=== PATIENT | female | born 1985 | race Caucasian/White ===

== ENCOUNTER 2016-10-07 08:48 | Emergency (ER) | payer OTHER ==
[~2016-10-07] VITALS: Ht 147.3 cm; Wt 72.1 kg
[~2016-10-07 08:48] MED LIST: KLONAPIN; LOW ESTROGEN; prozac
[2016-10-07 08:49] VITALS: BP 131/75
--- NOTE | 2016-10-07 09:40 | REP ---
Chest two views HISTORY: Cough Comparison: None The lungs are clear. The heart is normal in size. The pulmonary vasculature is normal in appearance. The bony structure is intact. IMPRESSION: No acute disease. Signed by Alfa Thomas MD 10/07/2016 09:32 A
[2016-10-07] MEDS ORDERED: FLON1SPR (09:47)
[2016-10-07] MEDS ORDERED: GUAISYP9 PO (09:47)
[2016-10-07] MEDS ORDERED: TESS100C PO (09:47)
== END 2016-10-07 09:54 | disposition home or self-care (01) ==
LOC: MERGE 09:05 → M ED 09:05
DX: J06.9 Acute upper respiratory infection, unspecified (principal); F41.9 Anxiety disorder, unspecified; F33.9 Major depressive disorder, recurrent, unspecified; Z79.899 Other long term (current) drug therapy; Z88.2 Allergy status to sulfonamides; F17.210 Nicotine dependence, cigarettes, uncomplicated

== ENCOUNTER 2016-10-28 08:36 | Emergency (ER) | payer OTHER ==
[~2016-10-28] VITALS: Ht 147.3 cm; Wt 69.9 kg
[~2016-10-28 08:36] MED LIST changes: +FLON1SPR; +GUAISYP9 PO; +TESS100C PO
[2016-10-28 10:04] LABS: CONTROL LINE UCG INT CTR LINE PRESENT
[2016-10-28 11:13] LABS: BASO % 0.4 % (0.0-1.0); EOS # 0.1 K/mm3 (0.0-0.50); EOS % 0.8 % (0.0-3.0); LARGE UNSTAINED CELL # 0.1 K/mm3 (0.0-0.4); LARGE UNSTAINED CELL % 1.2 % (0.0-4.0); LYMPH # 1.7 K/mm3 (1.5-4.5); LYMPH % 23.3 % (24.0-44.0); MEAN CORPUSCULAR HEMOGLOBIN 32.3 pg (27.0-33.0); MEAN CORPUSCULAR HGB CONC 34.5 g/dl (32.0-36.5); MEAN CORPUSCULAR VOLUME 93.6 fl (80.0-96.0); MONO # 0.3 K/mm3 (0.0-0.8); MONO % 4.1 % (0.0-5.0); NEUTROPHILS # 5.2 K/mm3 (1.8-7.7); NEUTROPHILS % 70.1 % (36.0-66.0); PLATELET COUNT, AUTOMATED 256 k/mm3 (150-450); RED CELL DISTRIBUTION WIDTH 12.6 % (11.5-14.5); WHITE BLOOD COUNT 7.4 K/mm3 (4.0-10.0)
[2016-10-28] MEDS ORDERED: ACETAMINOPHEN 325 MG TAB PO ONE (11:15)
[2016-10-28] MEDS ORDERED: METOCLOPRAMIDE 10 MG TAB PO ONE (11:15)
[2016-10-28] MEDS ORDERED: METOCLOPRAMIDE 5 MG TAB PO ONE (11:15)
[2016-10-28 11:39] LABS: ANION GAP 6 MEQ/L (8-16); BLOOD UREA NITROGEN 9 MG/DL (7-18); CALCIUM LEVEL 8.7 MG/DL (8.5-10.1); CARBON DIOXIDE LEVEL 25 MEQ/L (21-32); CHLORIDE LEVEL 108 MEQ/L (98-107); CREATININE FOR GFR 0.62 MG/DL (0.55-1.02); GLOMERULAR FILTRATION RATE > 60.0 (>60); GLUCOSE, FASTING 93 MG/DL (70-105); HCG, SERUM QUANTITATIVE 437 MIU/ML; POTASSIUM SERUM 3.9 MEQ/L (3.5-5.1); SODIUM LEVEL 139 MEQ/L (136-145)
--- NOTE | 2016-10-28 11:52 | REP ---
Clinical: Pelvic pain with positive test. Technique: Transabdominal pelvic ultrasound followed by transvaginal examination for better evaluation of the endometrium and adnexa with color Doppler evaluation. Findings: Anteverted uterus measures 8.2 x 4.2 x 5.2 cm. Endometrial complex measures 13.1 mm thickness. No intrauterine identified. The bilateral ovaries are normal in appearance and vascularity without torsion. Right ovary measures 3.1 x 1.9 x 2.6 cm; RI equal 0.63. Left ovary measures 3.9 x 2.9 x 3.7 cm with 2.7 cm hemorrhagic cyst/corpus luteum; RI equal 0.57. Small amount of free fluid noted in the pelvis. No adnexal mass lesion identified. Impression: Anteverted uterus with left hemorrhagic cyst/corpus luteum cyst. No intrauterine identified. Correlation with serial HCG levels recommended. Differential diagnosis includes early , recent spontaneous , and ectopic cannot definitively be excluded. Signed by Graeme Alfred MD 10/28/2016 11:43 A
[2016-10-28] MEDS ORDERED: NITROFURANTOIN (MACROBID) 100 MG CAP PO ONE (12:00)
[2016-10-28 12:14] VITALS: BP 127/67
[2016-10-28] MEDS ORDERED: REGL10TA6 PO (12:14)
[2016-10-28] MEDS ORDERED: MACR100C3 PO (12:14)
== END 2016-10-28 12:22 | disposition home or self-care (01) ==
LOC: M ED 10:24
DX: O23.10 Infections of bladder in pregnancy, unspecified trimester (principal); Z3A.01 Less than 8 weeks gestation of pregnancy; O99.341 Other mental disorders complicating pregnancy, first trimester; F41.9 Anxiety disorder, unspecified; Z79.899 Other long term (current) drug therapy; Z88.2 Allergy status to sulfonamides; O99.711 Diseases of the skin and subcutaneous tissue complicating pregnancy, first trimester; L23.1 Allergic contact dermatitis due to adhesives; O99.331 Smoking (tobacco) complicating pregnancy, first trimester; F17.210 Nicotine dependence, cigarettes, uncomplicated

== ENCOUNTER 2016-11-26 08:18 | Emergency (ER) | payer OTHER ==
[~2016-11-26] VITALS: Ht 147.3 cm; Wt 69.1 kg
[~2016-11-26 08:18] MED LIST changes: +MACR100C3 PO; +REGL10TA6 PO
[2016-11-26] MEDS ORDERED: PRENTAB40 PO (08:26)
[2016-11-26] MEDS ORDERED: TYLE325T5 PO (08:26)
--- NOTE | 2016-11-26 10:29 | REP ---
First trimester obstetric ultrasound, stat request from the ER for left lower quadrant pain. There is an intrauterine gestational sac with a pole. There is cardiac activity, the heart rate is 171 beats per minute. The crown-rump length of the pole is 2.0 cm. This corresponds to 8 weeks 4 days gestational age. The MARYELLEN of 07/04/2017. No subchorionic hematoma is identified. There is a left ovarian cyst, likely a corpus luteum, measuring 1.8 cm. The right ovary is unremarkable. No free fluid in the pelvis. With Doppler assessment there is vascular flow in both ovaries with the Doppler resistive index of the right ovary measuring zero point 0.69 and of the left ovary measuring 0.44. Signed by Nickolas Richard MD 11/26/2016 10:21 A
[2016-11-26 10:34] VITALS: BP 123/71
== END 2016-11-26 10:36 | disposition home or self-care (01) ==
LOC: M ED 08:41
DX: N83.291 Other ovarian cyst, right side (principal); O99.341 Other mental disorders complicating pregnancy, first trimester; F41.9 Anxiety disorder, unspecified; O99.331 Smoking (tobacco) complicating pregnancy, first trimester; Z79.899 Other long term (current) drug therapy; Z88.2 Allergy status to sulfonamides; Z91.09 Other allergy status, other than to drugs and biological substances; Z3A.08 8 weeks gestation of pregnancy

== ENCOUNTER → 2016-12-09 | Outpatient (CLI) | payer OTHER ==
[~2016-12-09] MED LIST changes: +PRENTAB40 PO; +TYLE325T5 PO
[2016-12-09 14:55] LABS: BASO % 0.2 % (0.0-1.0); EOS % 0.5 % (0.0-3.0); LARGE UNSTAINED CELL # 0.1 K/mm3 (0.0-0.4); LARGE UNSTAINED CELL % 1.1 % (0.0-4.0); LYMPH # 1.9 K/mm3 (1.5-4.5); LYMPH % 24.7 % (24.0-44.0); MEAN CORPUSCULAR HEMOGLOBIN 31.5 pg (27.0-33.0); MEAN CORPUSCULAR HGB CONC 34.6 g/dl (32.0-36.5); MONO # 0.3 K/mm3 (0.0-0.8); MONO % 4.4 % (0.0-5.0); NEUTROPHILS % 69.1 % (36.0-66.0); PLATELET COUNT, AUTOMATED 216 k/mm3 (150-450); RED CELL DISTRIBUTION WIDTH 12.6 % (11.5-14.5); WHITE BLOOD COUNT 7.3 K/mm3 (4.0-10.0)
[2016-12-11 10:46] LABS: HBsAg Prenatal NEGATIVE (NEGATIVE)
== END ==
LOC: M SMT 10:27
PROVIDERS: ATTEND Advanced Practice Midwife
DX: Z34.81 Encounter for supervision of other normal pregnancy, first trimester (principal)

== ENCOUNTER 2016-12-26 10:51 | Emergency (ER) | payer OTHER ==
[~2016-12-26] VITALS: Ht 147.3 cm; Wt 73.1 kg
[~2016-12-26 10:51] MED LIST changes: -MACR100C3 PO; +MACR100C43 PO
[2016-12-26 10:52] VITALS: BP 142/71
[2016-12-26] MEDS ORDERED: REGL10TA6 (11:01)
[2016-12-26] MEDS ORDERED: ALBU17IN INH (12:40)
[2016-12-26] MEDS ORDERED: AUGM875T28 PO (12:40)
[2016-12-26] MEDS ORDERED: CLAR1TAB2 PO (12:40)
== END 2016-12-26 12:49 | disposition home or self-care (01) ==
LOC: M ED 10:51
DX: J01.90 Acute sinusitis, unspecified (principal); J20.9 Acute bronchitis, unspecified; F17.210 Nicotine dependence, cigarettes, uncomplicated

== ENCOUNTER → 2017-01-08 | Outpatient (REF) | payer OTHER ==
[~2017-01-08] MED LIST changes: +ALBU17IN INH; +AUGM875T28 PO; +CLAR1TAB2 PO; +REGL10TA6
== END ==
LOC: M LAB REF 13:16
PROVIDERS: ATTEND Advanced Practice Midwife
DX: Z34.81 Encounter for supervision of other normal pregnancy, first trimester (principal)

== ENCOUNTER → 2017-02-04 | Outpatient (CLI) | payer OTHER ==
--- NOTE | 2017-02-04 11:14 | REP ---
OB ULTRASOUND: Real-time sonographic evaluation of the gravid uterus is performed. There is a single living intrauterine with an estimated gestational age 18 weeks 3 days, EDC 07/05/2017. Today's measurements indicate appropriate growth. Biometry and Growth: BPD 38 mm = 17 weeks 5 days, 24th percentile HC 150 mm = 18 weeks 4 days, 40th percentile AC 134 mm = 18 weeks 6 days, 61st percentile FL 28 mm = 18 weeks 4 days, 53rd percentile HC/AC ratio 1.12 within normal range. Estimated weight 250 grams, 55th percentile. SEEN/GROSSLY UNREMARKABLE Lateral ventricles Yes Posterior fossa Yes Upper lip Yes Four-chamber heart No LVOT No RVOT No Stomach Yes Cord insertion Yes Three vessel cord Yes Kidneys Yes Bladder Yes Spine No Cervical length: Closed and measures 3.2 cm in length. heart rate: 145 beats per minute. position: Vertex. Placenta: Anterior and grade 0 with no previa or abruption. Amniotic fluid: Within normal limits. Signed by Nickolas Dawn MD 02/04/2017 04:40 P
== END ==
LOC: M RAD 09:24
PROVIDERS: ATTEND Advanced Practice Midwife
DX: Z34.80 Encounter for supervision of other normal pregnancy, unspecified trimester (principal)

== ENCOUNTER → 2017-02-18 | Outpatient (CLI) | payer OTHER ==
--- NOTE | 2017-02-18 18:35 | REP ---
Clinical: Anatomical re-evaluation. Comparison: 02/04/2017 . Findings: Examination demonstrates a single live intrauterine in cephalic presentation. motion is identified by technologist. Placenta is noted anteriorly and grade 0 without evidence for placenta previa or abruption. Amniotic fluid volume is normal. Cervix measures 3.3 cm in length and appears closed. Gestational age by LMP 20 weeks 3-day with MARYELLEN 07/05/2017 . Gestational age by current measurements 20 weeks 5 days with MARYELLEN 07/03/2017 . FHR equals 135 beats per minute. Estimated weight 380 grams ( 61st percentile). Anatomical assessment demonstrates normal structures including cranium, choroid plexus, cavum, cerebellum/posterior fossa, facial features, lungs, four-chamber heart/ventricular outflow tracts, diaphragm, stomach, cord insertion/three-vessel cord, kidneys/bladder, spine, and extremities. Impression: Single live intrauterine in cephalic presentation demonstrating appropriate interval growth. Anatomical assessment is complete and normal. Signed by Graeme Alfred MD 02/18/2017 06:26 P
== END ==
LOC: M RAD 16:36
PROVIDERS: ATTEND Advanced Practice Midwife
DX: Z36 Encounter for antenatal screening of mother (principal); Z3A.20 20 weeks gestation of pregnancy

== ENCOUNTER → 2017-04-03 | Outpatient (CLI) | payer OTHER ==
[2017-04-03 14:01] LABS: BASO % 0.3 % (0.0-1.0); EOS % 0.4 % (0.0-3.0); IMMATURE GRANULOCYTE % 0.8 % (0-0); LYMPH # 1.6 10^3/uL (1.5-4.5); LYMPH % 17.7 % (24.0-44.0); MEAN CORPUSCULAR HEMOGLOBIN 30.4 pg (27.0-33.0); MEAN CORPUSCULAR HGB CONC 33.8 g/dl (32.0-36.5); MEAN CORPUSCULAR VOLUME 89.7 fl (80.0-96.0); MONO # 0.7 10^3/uL (0.0-0.8); MONO % 7.6 % (0.0-5.0); NEUTROPHILS # 6.8 10^3/uL (1.8-7.7); NEUTROPHILS % 73.2 % (36.0-66.0); PLATELET COUNT, AUTOMATED 235 10^3/uL (150-450); RED CELL DISTRIBUTION WIDTH 12.9 % (11.5-14.5); WHITE BLOOD COUNT 9.3 10^3/uL (4.0-10.0)
== END ==
LOC: M SMT 08:38
PROVIDERS: ATTEND Advanced Practice Midwife
DX: Z34.83 Encounter for supervision of other normal pregnancy, third trimester (principal)

== ENCOUNTER 2017-05-19 15:44 | Outpatient (CLI) | payer OTHER ==
[~2017-05-19] VITALS: Ht 147.3 cm; Wt 75.7 kg
[2017-05-19 16:10] VITALS: BP 125/69
[2017-05-19 17:18] VITALS: BP 120/69
[2017-05-19 17:35] LABS: MEAN CORPUSCULAR HEMOGLOBIN 30.9 pg (27.0-33.0); MEAN CORPUSCULAR HGB CONC 34.7 g/dl (32.0-36.5); PLATELET COUNT, AUTOMATED 233 10^3/uL (150-450); RED CELL DISTRIBUTION WIDTH 12.8 % (11.5-14.5); WHITE BLOOD COUNT 10.8 10^3/uL (4.0-10.0)
[2017-05-19 18:04] LABS: ALBUMIN/GLOBULIN RATIO 0.73 (1.00-1.93); ALKALINE PHOSPHATASE 92 U/L (45-117); ALT/SGPT 14 U/L (12-78); ANION GAP 8 MEQ/L (8-16); AST/SGOT 19 U/L (7-37); BILIRUBIN,TOTAL 0.3 MG/DL (0.2-1.0); BLOOD UREA NITROGEN 4 MG/DL (7-18); CALCIUM LEVEL 8.7 MG/DL (8.5-10.1); CARBON DIOXIDE LEVEL 24 MEQ/L (21-32); CHLORIDE LEVEL 104 MEQ/L (98-107); CREATININE FOR GFR 0.45 MG/DL (0.55-1.02); GLOMERULAR FILTRATION RATE > 60.0 (>60); GLUCOSE, FASTING 79 MG/DL (70-105); POTASSIUM SERUM 3.4 MEQ/L (3.5-5.1); SODIUM LEVEL 136 MEQ/L (136-145); TOTAL PROTEIN 7.1 GM/DL (6.4-8.2)
[2017-05-19 18:46] VITALS: BP 123/58
--- NOTE | 2017-05-19 18:50 | REP ---
REASON FOR EXAM: Right flank pain. PRIORS: None. Right kidney measures 12.8 x 4.1 x 5.1 cm. The renal cortical echoes are within normal limits. There is mild right sided hydronephrosis. There are no malina cystic or solid masses. Left kidney measures 12.2 x 5.1 x 4.9 cm. The renal cortical echoes are within normal limits. There are no cystic or solid masses. There is no hydronephrosis. IMPRESSION: Mild right sided hydronephrosis. Signed by Constantine Gayle DO 05/19/2017 08:00 P
== END 2017-05-19 19:45 | disposition home or self-care (01) ==
LOC: M LDO 15:44
PROVIDERS: ATTEND Advanced Practice Midwife
DX: O99.89 Other specified diseases and conditions complicating pregnancy, childbirth and the puerperium (principal); R10.30 Lower abdominal pain, unspecified; O47.03 False labor before 37 completed weeks of gestation, third trimester; Z3A.33 33 weeks gestation of pregnancy

== ENCOUNTER → 2017-06-11 | Outpatient (REF) | payer OTHER | LOC: M LAB REF 11:04 | PROVIDERS: ATTEND Advanced Practice Midwife | DX: Z34.83 Encounter for supervision of other normal pregnancy, third trimester (principal) ==

== ENCOUNTER 2017-07-11 03:26 | Inpatient (IN) | payer OTHER ==
[2017-07-11] MEDS: LR 1,000 ML IV ×3 (04:00→19:28)
[2017-07-11 04:13] LABS: HEMATOCRIT 37.6 % (36.0-47.0); HEMOGLOBIN 13.1 g/dl (12.0-16.0); MEAN CORPUSCULAR HGB CONC 34.8 g/dl (32.0-36.5); MEAN CORPUSCULAR VOLUME 88.9 fl (80.0-96.0); PLATELET COUNT, AUTOMATED 241 10^3/uL (150-450); RED BLOOD COUNT 4.23 10^6/uL (4.00-5.40); RED CELL DISTRIBUTION WIDTH 13.5 % (11.5-14.5); WHITE BLOOD COUNT 11.2 10^3/uL (4.0-10.0)
[2017-07-11] MEDS ORDERED: OXYTOCIN 30 UNITS IN 0.9% NaCl 500ML IV BAG (J2590) As Ordered (04:27)
[2017-07-11] MEDS ORDERED: LR 1,000 ML IV (04:35)
[2017-07-11] MEDS: OXYTOCIN DRIP 30 UNITS in APPROPRIATE DILUENT 1 EA IV (05:03)
[2017-07-11] MEDS ORDERED: ONDANSETRON 4MG/2ML VIAL (J2405) IV (05:30)
[2017-07-11] MEDS ORDERED: DOCUSATE SODIUM 100 MG CAP PO (05:30)
[2017-07-11] MEDS ORDERED: METHYLERGONOVINE MALEATE 0.2 MG TAB PO (05:30)
[2017-07-11] MEDS ORDERED: DIBUCAINE 1% OINTMENT 30GM TOP (05:30)
[2017-07-11] MEDS ORDERED: PROMETHAZINE 25 MG TAB PO (05:30)
[2017-07-11] MEDS ORDERED: ACETAMINOPHEN 500 MG TAB PO (05:30)
[2017-07-11] MEDS: MEASLES,MUMPS,RUBELLA VACCINE INJ (MMR-II) (90707) SC (09:22)
[2017-07-11] MEDS: RHOGAM 300 MCG (1500 IU) INJ (J2790) IM (09:23)
[2017-07-11] MEDS: PRENATAL VITAMINS CHEWABLE TABLET PO (09:38)
[2017-07-11] MEDS: LACTATED RINGER'S 1000 ML IV (19:26)
[2017-07-11] MEDS: IBUPROFEN 800 MG TAB PO (20:05)
[2017-07-12] MEDS: PRENATAL VITAMINS CHEWABLE TABLET PO (09:00)
== END 2017-07-12 11:25 | disposition home or self-care (01) | DRG 560 ==
LOC: M LDO 03:26 → M LDI 03:48 → M OBS 08:20
PROVIDERS: Obstetrics & Gynecology
PROC: 10E0XZZ Delivery of Products of Conception, External Approach (ICD-10-PCS; principal; 2017-07-11)
DX: O48.0 Post-term pregnancy (principal); O99.344 Other mental disorders complicating childbirth; F41.9 Anxiety disorder, unspecified; Z37.0 Single live birth; Z3A.40 40 weeks gestation of pregnancy; Z88.1 Allergy status to other antibiotic agents; Z91.048 Other nonmedicinal substance allergy status; Z79.899 Other long term (current) drug therapy

== ENCOUNTER → 2017-07-24 | Outpatient (REF) | payer OTHER | LOC: M LAB REF 17:42 | DX: N89.8 Other specified noninflammatory disorders of vagina (principal) | CPT/HCPCS: 87186 ==

== ENCOUNTER → 2017-07-24 | Outpatient (REF) | payer OTHER ==
[2017-07-24 14:16] LABS: BASO # 0.1 10^3/uL (0.0-0.2); BASO % 0.8 % (0.0-1.0); EOS # 0.1 10^3/uL (0.0-0.50); EOS % 1.1 % (0.0-3.0); HEMATOCRIT 43.3 % (36.0-47.0); HEMOGLOBIN 14.2 g/dl (12.0-16.0); IMMATURE GRANULOCYTE % 1.5 % (0-3.0); LYMPH # 2.9 10^3/uL (1.5-4.5); LYMPH % 33.8 % (24.0-44.0); MEAN CORPUSCULAR HEMOGLOBIN 30.3 pg (27.0-33.0); MEAN CORPUSCULAR HGB CONC 32.8 g/dl (32.0-36.5); MEAN CORPUSCULAR VOLUME 92.3 fl (80.0-96.0); MONO # 0.5 10^3/uL (0.0-0.8); MONO % 5.3 % (0.0-5.0); NEUTROPHILS # 4.9 10^3/uL (1.8-7.7); NEUTROPHILS % 57.5 % (36.0-66.0); PLATELET COUNT, AUTOMATED 402 10^3/uL (150-450); RED BLOOD COUNT 4.69 10^6/uL (4.00-5.40); RED CELL DISTRIBUTION WIDTH 13.4 % (11.5-14.5); WHITE BLOOD COUNT 8.6 10^3/uL (4.0-10.0)
[2017-07-24 14:40] LABS: ESTIMATED AVERAGE GLUCOSE 108 MG/DL (60-110); HEMOGLOBIN A1c 5.4 %
[2017-07-24 14:43] LABS: TOTAL 25(OH) VITAMIN D 19.6 NG/ML (30.0-100.0)
[2017-07-24 14:59] LABS: ALBUMIN 3.8 GM/DL (3.2-5.2); ALBUMIN/GLOBULIN RATIO 0.86 (1.00-1.93); ALKALINE PHOSPHATASE 125 U/L (45-117); ALT/SGPT 23 U/L (12-78); ANION GAP 10 MEQ/L (8-16); AST/SGOT 17 U/L (7-37); BILIRUBIN,TOTAL 0.3 MG/DL (0.2-1.0); BLOOD UREA NITROGEN 13 MG/DL (7-18); CALCIUM LEVEL 9.5 MG/DL (8.5-10.1); CARBON DIOXIDE LEVEL 25 MEQ/L (21-32); CHLORIDE LEVEL 105 MEQ/L (98-107); CHOLESTEROL LEVEL 320 MG/DL (<200); CHOLESTEROL RISK RATIO 4.637 (<5); CREATININE FOR GFR 0.73 MG/DL (0.55-1.30); FERRITIN 18 NG/ML (8-252); GLOMERULAR FILTRATION RATE > 60.0 (>60); GLUCOSE, FASTING 86 MG/DL (70-100); HDL CHOLESTEROL 69 MG/DL (>40); IRON (FE) 84 UG/DL (50-170); NON-HDL-C 251 MG/DL; POTASSIUM SERUM 4.5 MEQ/L (3.5-5.1); SODIUM LEVEL 140 MEQ/L (136-145); THYROID STIMULATING HORMONE 0.863 uIU/ML (0.358-3.740); TOTAL PROTEIN 8.2 GM/DL (6.4-8.2); TRIGLYCERIDES LEVEL 120 MG/DL (<150)
[2017-07-25 11:13] LABS: HIV 1&2 SCREEN CENTAUR NEGATIVE (NEGATIVE)
== END ==
LOC: M LAB REF 13:32
DX: Z13.9 Encounter for screening, unspecified (principal)

== ENCOUNTER → 2018-03-04 | Outpatient (REF) | LOC: M SMT 13:58 | DX: Z00.00 Encounter for general adult medical examination without abnormal findings (principal) ==

== ENCOUNTER 2018-04-19 23:50 | Emergency (ER) | payer OTHER | END 2018-04-20 01:18 | disposition home or self-care (01) | LOC: M ED 23:50 | DX: B08.4 Enteroviral vesicular stomatitis with exanthem (principal); Z20.828 Contact with and (suspected) exposure to other viral communicable diseases; K21.9 Gastro-esophageal reflux disease without esophagitis; F41.9 Anxiety disorder, unspecified; Z88.2 Allergy status to sulfonamides; Z91.048 Other nonmedicinal substance allergy status | CPT/HCPCS: 87880 ==

== ENCOUNTER → 2018-06-24 | Outpatient (CLI) | payer OTHER ==
[~2018-06-24] MED LIST changes: +COLA100C5 PO; +IBUP-1114 PO; +MAPA500T2 PO; +PRENTAB9 PO
== END ==
LOC: M SMT 09:30
PROVIDERS: ATTEND Advanced Practice Midwife
DX: O20.0 Threatened abortion (principal)

== ENCOUNTER → 2018-06-26 | Outpatient (CLI) | payer OTHER | LOC: M SMT 09:51 | PROVIDERS: ATTEND Advanced Practice Midwife | DX: O20.0 Threatened abortion (principal) ==

== ENCOUNTER → 2018-06-28 | Outpatient (CLI) | payer OTHER | LOC: M LAB 09:28 | PROVIDERS: ATTEND Advanced Practice Midwife | DX: O20.0 Threatened abortion (principal) ==

== ENCOUNTER → 2018-07-01 | Outpatient (CLI) | payer OTHER | LOC: M SMT 13:16 | PROVIDERS: ATTEND Advanced Practice Midwife | DX: O20.0 Threatened abortion (principal) ==

== ENCOUNTER → 2018-08-27 | Outpatient (REF) | payer OTHER, MEDICAID | LOC: M LAB REF 16:53 | PROVIDERS: ATTEND Nurse Practitioner Adult Health | DX: E66.09 Other obesity due to excess calories (principal) ==

== ENCOUNTER → 2018-11-11 | Outpatient (REF) | payer OTHER, MEDICAID ==
[2018-11-11 12:51] LABS: BASO # 0.1 10^3/uL (0.0-0.2); BASO % 0.8 % (0.0-1.0); EOS # 0.3 10^3/uL (0.0-0.50); EOS % 4.1 % (0.0-3.0); HEMATOCRIT 42.6 % (36.0-47.0); HEMOGLOBIN 14.3 g/dl (12.0-15.5); LYMPH # 2.1 10^3/uL (1.5-4.5); LYMPH % 34.7 % (24.0-44.0); MEAN CORPUSCULAR HEMOGLOBIN 30.2 pg (27.0-33.0); MEAN CORPUSCULAR HGB CONC 33.6 g/dl (32.0-36.5); MEAN CORPUSCULAR VOLUME 89.9 fl (80.0-96.0); MONO # 0.4 10^3/uL (0.0-0.8); MONO % 7.3 % (0.0-5.0); NEUTROPHILS # 3.2 10^3/uL (1.8-7.7); NEUTROPHILS % 52.8 % (36.0-66.0); PLATELET COUNT, AUTOMATED 255 10^3/uL (150-450); RED BLOOD COUNT 4.74 10^6/uL (4.00-5.40); WHITE BLOOD COUNT 6.1 10^3/uL (4.0-10.0)
[2018-11-11 13:05] LABS: ALBUMIN 3.7 GM/DL (3.2-5.2); ALT/SGPT 23 U/L (12-78); BILIRUBIN,TOTAL 0.5 MG/DL (0.2-1.0); BLOOD UREA NITROGEN 10 MG/DL (7-18); CALCIUM LEVEL 8.4 MG/DL (8.5-10.1); CARBON DIOXIDE LEVEL 24 MEQ/L (21-32); CHLORIDE LEVEL 106 MEQ/L (98-107); CHOLESTEROL LEVEL 142 MG/DL (<200); CHOLESTEROL RISK RATIO 2.057 (<5); CREATININE FOR GFR 0.71 MG/DL (0.55-1.30); FREE T4 0.89 NG/DL (0.76-1.46); GLOMERULAR FILTRATION RATE > 60.0 (>60); GLUCOSE, FASTING 88 MG/DL (70-100); HDL CHOLESTEROL 69 MG/DL (>40); LDL CHOLESTEROL 61 MG/DL (<100); NON-HDL-C 73 MG/DL; POTASSIUM SERUM 4.1 MEQ/L (3.5-5.1); SODIUM LEVEL 140 MEQ/L (136-145); TOTAL PROTEIN 7.5 GM/DL (6.4-8.2); TRIGLYCERIDES LEVEL 59 MG/DL (<150)
[2018-11-11 13:08] LABS: TOTAL 25(OH) VITAMIN D 25.4 NG/ML (30.0-100.0)
[2018-11-11 13:31] LABS: HEMOGLOBIN A1c 5.1 %
[2018-11-13 00:06] LABS: Lyme Disease IgG/IgM Antibodie <0.91 ISR (0.00-0.90); Lyme Disease IgM Ab Quantitati <0.80 index (0.00-0.79)
== END ==
LOC: M LAB REF 12:15
PROVIDERS: ATTEND Family Medicine
DX: Z13.228 Encounter for screening for other metabolic disorders (principal); E78.49 Other hyperlipidemia